=== PATIENT | female | born 1935 | race Two or more races ===

== ENCOUNTER 2023-05-12 10:19 | Outpatient (CLI) | payer OTHER | END 2023-05-12 10:20 | disposition home or self-care (01) | LOC: EDBD 10:19 → NUCLEAR 10:19 | PROVIDERS: ATTEND Internal Medicine Cardiovascular Disease | DX: I25.10 Atherosclerotic heart disease of native coronary artery without angina pectoris (principal); I11.9 Hypertensive heart disease without heart failure; I50.42 Chronic combined systolic (congestive) and diastolic (congestive) heart failure; I30.9 Acute pericarditis, unspecified ==